=== PATIENT | female | born 1965 | race African-American/Black ===

== ENCOUNTER 2019-02-21 08:24 | Outpatient (CLI) | payer OTHER ==
--- NOTE | 2019-02-21 14:32 | MMO ---
Bilateral MAMMO Bilat Screen [facility]. CLINICAL HISTORY: Patient is 53 years old and is seen for screening. The patient has the following family history of breast cancer: maternal aunt, at age 55. The patient has no personal history of cancer. VIEWS: The views performed were: bilateral craniocaudal and bilateral mediolateral oblique. FILMS COMPARED: The present examination has been compared to prior imaging studies performed at [facility] on 09/16/2005, 09/16/2006, 11/10/2007, 11/24/2008 and 11/26/2009, and at [facility] on 12/09/2017. This study has been interpreted with the assistance of computer-aided detection. MAMMOGRAM FINDINGS: There are scattered fibroglandular densities. There are no suspicious masses, suspicious calcifications, or new areas of architectural distortion. IMPRESSION: THERE IS NO MAMMOGRAPHIC EVIDENCE OF MALIGNANCY. A ROUTINE FOLLOW-UP MAMMOGRAM IN 1 YEAR IS RECOMMENDED. ACR BI-RADS Category 1 - Negative MAMMOGRAPHY NOTE: 1. A negative mammogram report should not delay a biopsy if a dominant of clinically suspicious mass is present. 2. Approximately 10% to 15% of breast cancers are not detected by mammography. 3. Adenosis and dense breasts may obscure an underlying neoplasm.
== END 2019-02-21 08:25 | disposition home or self-care (01) ==
LOC: SCSMAMMO 08:24
PROVIDERS: ATTEND Family Medicine
DX: Z12.31 Encounter for screening mammogram for malignant neoplasm of breast (principal); Z80.3 Family history of malignant neoplasm of breast
CPT/HCPCS: 77067

== ENCOUNTER 2020-03-28 08:18 | Outpatient (CLI) | payer OTHER ==
--- NOTE | 2020-03-28 09:15 | MMO ---
Bilateral MAMMO Bilat Screen [facility]. CLINICAL HISTORY: Patient is 54 years old and is seen for screening. The patient has the following family history of breast cancer: maternal aunt, at age 55. The patient has no personal history of cancer. VIEWS: The views performed were: bilateral craniocaudal with tomosynthesis and bilateral mediolateral oblique with tomosynthesis. FILMS COMPARED: The present examination has been compared to prior imaging studies performed at [facility] on 02/21/2019, at [facility] on 11/24/2008 and 11/26/2009, and at [facility] on 12/09/2017. This study has been interpreted with the assistance of computer-aided detection. MAMMOGRAM FINDINGS: There are scattered fibroglandular densities. There are stable benign appearing calcifications seen in both breasts. There are no suspicious masses, suspicious calcifications, or new areas of architectural distortion. IMPRESSION: THERE IS NO MAMMOGRAPHIC EVIDENCE OF MALIGNANCY. A ROUTINE FOLLOW-UP MAMMOGRAM IN 1 YEAR IS RECOMMENDED. THE RESULTS OF THIS EXAM WERE SENT TO THE PATIENT. ACR BI-RADS Category 2 - Benign finding MAMMOGRAPHY NOTE: 1. A negative mammogram report should not delay a biopsy if a dominant of clinically suspicious mass is present. 2. Approximately 10% to 15% of breast cancers are not detected by mammography. 3. Adenosis and dense breasts may obscure an underlying neoplasm. Reported by: YAIR PINTO MD Electonically Signed: [id number]
== END 2020-03-28 08:19 | disposition home or self-care (01) ==
LOC: BICMAMMO 08:18
PROVIDERS: ATTEND Family Medicine
DX: Z12.31 Encounter for screening mammogram for malignant neoplasm of breast (principal); Z80.3 Family history of malignant neoplasm of breast
CPT/HCPCS: 77063; 77067

== ENCOUNTER 2020-08-17 14:53 | Outpatient (CLI) | payer BC ==
--- NOTE | 2020-08-17 15:24 | ULT ---
EXAM: US Soft Tissue Other DATE: 08/17/2020 12:00 AM INDICATION: Palpable painful areas in the left axilla for 2 weeks COMPARISON: None. FINDING: Grayscale and color Doppler images of the left axilla were provided. Within a region of pal pable interest is a 0.5 x 0.9 x 0.6 cm lymph node. The single cortex thickness of this lymph node was 2 mm. An additional 1.2 x 0.5 cm lymph node was present within the left axilla. This lymph node h ad a single cortex thickness of 1.8 mm. IMPRESSION:Nonpathologically enlarged lymph nodes correspond to the palpable painful areas in the lef t axilla. No additional sonographic abnormalities seen within this location. Recommend diagnostic mammography if there is concern for underlying breast malignancy.
== END 2020-08-17 14:54 | disposition home or self-care (01) ==
LOC: BICULT 14:53
PROVIDERS: ATTEND Family Medicine
DX: R22.32 Localized swelling, mass and lump, left upper limb (principal)
CPT/HCPCS: 76999

== ENCOUNTER 2020-08-22 14:54 | Outpatient (CLI) | payer BC ==
--- NOTE | 2020-08-22 17:40 | MRI ---
MRI OF THE RIGHT SHOULDER WITHOUT CONTRAST: 08/22/20 HISTORY: Tear right rotator cuff. COMPARISON: None. FINDINGS: BICEPS TENDON: There is a large interstitial split tear at the proximal extra-articular biceps tendon at the intertu bercular groove. There is high grade interstitial tearing of the intra-articular tendon. LABRUM: Intrasubstance tear throughout the superior labrum. ROTATOR CUFF: Some low grade undersurface partial tearing of the subscapularis in the footprint. There is full thic kness full width supraspinatus tendon tear from the footprint retracting the mid humeral head. Torn f ibers are mildly scarred. The infraspinatus tendon anterior fibers have some mild undersurface partia l tearing, 30-40% thickness. BONES: Type III acromion with large subacromial keel enthesophyte narrowing the subacromial space. Normal gl enoid version. No acute fracture or malalignment. MUSCLES: Some low grade atrophy of the supraspinatus. There is some volume loss within the suprascapular fossa . No interstitial edema. SOFT TISSUES: There is some moderate subacromial subdeltoid bursa effusion due to communication of the glenohumeral joint. Axillary pouch is maintained. Subcoracoid fat triangle is maintained. IMPRESSION: 1. Full thickness full width supraspinatus tendon tear from the footprint retracting the mid hum eral head with extensive delamination of the torn fibers. 2. Severe interstitial split tearing throughout the intra-articular and majority of the extra-ar ticular biceps tendon with markedly thickened intra-articular tendon due to mucinous degeneration an d may be the cause of pain and locking of the shoulder. 3. Low grade supraspinatus muscle atrophy. 4. Type III acromion with large subacromial keel enthesophyte narrowing the subacromial space. 5. Superior labral tearing, intrasubstance anterior to posterior to the biceps labral expansion. POS: [facility]
== END 2020-08-22 14:55 | disposition home or self-care (01) ==
LOC: BICMRI 14:54
PROVIDERS: ATTEND Orthopaedic Surgery
DX: M75.121 Complete rotator cuff tear or rupture of right shoulder, not specified as traumatic (principal); S46.211A Strain of muscle, fascia and tendon of other parts of biceps, right arm, initial encounter; M62.511 Muscle wasting and atrophy, not elsewhere classified, right shoulder; S43.431A Superior glenoid labrum lesion of right shoulder, initial encounter; M75.91 Shoulder lesion, unspecified, right shoulder

== ENCOUNTER 2020-12-27 05:58 | Day surgery (SDC) | payer BC ==
[2020-12-26 14:08] VITALS: BMI 31.4
[2020-12-27] MEDS ORDERED: Fentanyl 100 MCG/2 ML VIAL ONE ×4 (06:53→10:49)
[2020-12-27] MEDS ORDERED: Midazolam HCl 2 mg/2 ml Vial ONE (06:53)
[2020-12-27] MEDS ORDERED: Fentanyl 100 MCG/2 ML VIAL SLOW IVP PRN (07:36)
[2020-12-27] MEDS ORDERED: Ondansetron PF 4 MG/2 ML Vial IVP PRN (07:45)
[2020-12-27] MEDS ORDERED: HYDROcodone/Acetaminophen 10/325 mg Tablet PO PRN ×2 (07:45)
[2020-12-27] MEDS ORDERED: Promethazine HCl 25 MG/ML VIAL IM PRN (07:45)
[2020-12-27] MEDS ORDERED: traMADol HCl 50 MG TAB PO PRN ×2 (07:45)
[2020-12-27] MEDS ORDERED: Ropivacaine 0.2% 550 ML 550 ML NERVE BLCK SCH (07:45)
[2020-12-27] MEDS ORDERED: Zolpidem Tartrate 5 MG TAB PO PRN (07:45)
[2020-12-27] MEDS ORDERED: Ropivacaine 0.5% HCl/PF (150 MG/30 ML VIAL) ONE (10:40)
[2020-12-27] MEDS ORDERED: Lidocaine 1% PF 5 ML VIAL ONE (10:40)
[2020-12-27] MEDS ORDERED: Dexamethasone 20 MG/5 ML VIAL ONE (10:40)
[2020-12-27] MEDS ORDERED: Ropivacaine 2% HCl/PF (20 MG/10 ML VIAL) ONE (10:40)
[2020-12-27] MEDS ORDERED: Rocuronium Bromide 10 MG/ML (10ML VIAL) ONE (10:40)
[2020-12-27] MEDS ORDERED: Glycopyrrolate 0.2 MG/ML 5 ML SYRINGE ONE (10:40)
[2020-12-27] MEDS ORDERED: Ondansetron PF 4 MG/2 ML Vial ONE (10:40)
[2020-12-27] MEDS ORDERED: PROPOFOL 200 MG/20 ML VIAL ONE (10:40)
[2020-12-27] MEDS ORDERED: Ketorolac Tromethamine 30 MG/ML VIAL ONE (10:40)
[2020-12-27] MEDS ORDERED: Bupivacaine 0.5% 10 ML VIAL ONE (11:11)
[2020-12-27] MEDS ORDERED: Ketorolac Tromethamine 30 MG/ML VIAL IVP SCH (12:00)
--- NOTE | 2020-12-27 12:33 | OP ---
DATE OF PROCEDURE: 12/27/2020 Dictated by Marcelino Shanks PA-C, for Dr. Raheem Russell. PREOPERATIVE DIAGNOSES: Right supraspinatus rotator cuff tear with acromial spurring and severe biceps tendinosis. POSTOPERATIVE DIAGNOSES: Right supraspinatus rotator cuff tear with acromial spurring and severe biceps tendinosis. OPERATIVE PROCEDURES: Open acromioplasty, open biceps tenodesis and open primary repair, double row technique, right supraspinatus rotator cuff tear. FINDINGS: 1. Retracted rotator cuff tear involving primarily the supraspinatus tendon, which appeared to be delaminated and acute on chronic, but attritional in nature. 2. Acromial spurring. 3. Severe tendinosis primarily proximal biceps at the insertion of the glenoid. INSURANCE HEALTHCARE CONSULTANT: Marcelino Shanks PA-C The technical staff assistant/co-surgeon was present through the entire procedure and was responsible for providing exposure, tissue retraction and any necessary limb or tissue manipulation required to obtain necessary reduction or hardware placement. The technical staff assistant/co-surgeon also provided bleeding control, tissue closure, and suturing in conjunction with the primary surgeon. ANESTHESIA: General via endotracheal tube augmented with indwelling interscalene block. COMPONENTS USED: 1. One cottony Dacron. 2. One Arthrex double-arm suture anchor. 3. 5.5 mm metal suture anchor. 4. Two BioComposite double row suture anchors and a 7 mm BioComposite tenodesis screw. DRAINS: None. SPECIMENS: None. COMPLICATIONS: None. COUNTS: Correct. INDICATION FOR SURGERY: Jacqui is a 55-year-old female, who has had right shoulder pain working overhead for the last 6 months. MRI demonstrated a retracted rotator cuff tear and biceps tendinosis and she has elected to proceed with open rotator cuff repair, tenodesis, and acromioplasty as definitive management of this problem. DESCRIPTION OF PROCEDURE: After informed was obtained, the patient was taken to the operative suite, where she received preoperative antibiotics. General anesthesia was induced and an endotracheal tube was placed and secured. Once adequate anesthesia was obtained, the patient was positioned in the beach chair position and the right upper extremity was prepped and draped in usual sterile fashion. She received preoperative antibiotics within an hour of incision time. The right upper extremity was then prepped and draped in usual sterile fashion. Prior to incision, a time-out was called and multidisciplinary time-out was observed. After this, a typical lateral incision was made directly over the acromion extending down approximately 3 fingerbreadths below the lateral aspect of the acromion. Local bleeding was controlled with Bovie electrocautery. The subcutaneous layer was then undermined with the Bovie electrocautery. The acromion was encountered and exposed anteriorly peeling off the anterior deltoid carefully. We then chose to enter between the anterior and middle deltoid raphe extending down 2 fingerbreadths to avoid the axillary nerve. A self-retaining retractor was placed and an osteotome was used to perform the acromioplasty to remove the spur and also improve visualization. Upon completion, the cuff tear was identified and freshened up. We then turned our attention to the biceps tenodesis. Curved Rae scissors were used to incise the tendon at the insertion of the glenoid deep within the shoulder and this was controlled with #1 Vicryl proximally. The biceps tendon sheath was then opened up exposing the gutter next to the lesser tuberosity. We chose a 7 mm biocompatible Arthrex tenodesis screw. The pin was placed, overdrilled with a 7 mm reamer using a unicortical technique. The tendon was captured and an interference screw was placed holding and fixing the tendon securely. We then turned our attention back toward the rotator cuff repair. The bone underlying the cuff tear was freshened up with a rongeur to get nice bleeding cortical bone. We then used a cottony Dacron in a margin convergence stitch and also used it as a lateral fixator later on. The single 5.5 metallic double-arm screw was then placed within the bleeding bone at the cartilaginous margin. Two stitches were placed in a tissue bridge technique. These were then prepared for double-row technique after tying them over the top. We had good footprint and pulldown of the tendon after we had performed a circumferential release with the . Two BioComposite suture anchors were then used for a crossing double row technique, malleted firmly into place and screwed with an interference technique, and all stitches were removed and cut short. The repair was watertight, inspected with internal, external rotation and abduction and forward flexion. Found to be very solid. Copious irrigation was carried out to the length and breadth of the wound. We then used a #1 Ethibond to perform a deltoid repair and this was oversewn with #1 Vicryl. Subcutaneous layer was closed with 2-0 Vicryl and subcuticular layer was closed with 2-0 Vicryl and stainless steel elyse were used to reapproximate the skin. Sterile dressing was applied. The procedure was terminated without any complication. The patient tolerated well. She was extubated in the operative suite and taken to recovery room in stable condition. Job ID: [id number]
--- NOTE | 2021-01-02 15:12 | EKG ---
Test Reason : PREOP Blood Pressure : / mmHG Vent. Rate : 070 BPM Atrial Rate : 070 BPM P-R Int : 162 ms QRS Dur : 104 ms QT Int : 412 ms P-R-T Axes : 026 -12 098 degrees QTc Int : 444 ms Normal sinus rhythm Left ventricular hypertrophy with repolarization abnormality Abnormal ECG No previous ECGs available Confirmed by REBEKA TURNER (2) on 01/02/2021 3:12:02 PM Referred By: CHLOE Confirmed By:REBEKA TURNER
== END 2020-12-27 13:25 | disposition home or self-care (01) ==
LOC: SDC 05:58
PROVIDERS: ATTEND Orthopaedic Surgery
PROC: 3E0T3BZ Introduction of Anesthetic Agent into Peripheral Nerves and Plexi, Percutaneous Approach (ICD-10-PCS; principal; 2020-12-27)
PROC: 0LS30ZZ Reposition Right Upper Arm Tendon, Open Approach (ICD-10-PCS; principal; 2020-12-27)
PROC: 0LQ10ZZ Repair Right Shoulder Tendon, Open Approach (ICD-10-PCS; principal; 2020-12-27)
PROC: 0RNJ0ZZ Release Right Shoulder Joint, Open Approach (ICD-10-PCS; principal; 2020-12-27)
DX: M75.101 Unspecified rotator cuff tear or rupture of right shoulder, not specified as traumatic (principal); M75.21 Bicipital tendinitis, right shoulder; G89.18 Other acute postprocedural pain; I42.9 Cardiomyopathy, unspecified; Z79.82 Long term (current) use of aspirin; Z79.899 Other long term (current) drug therapy; Z88.2 Allergy status to sulfonamides; Z88.5 Allergy status to narcotic agent
CPT/HCPCS: 93005; 93010; C1713; J0690; J1100; J1885; J2250; J2405; J2704; J2795; J3010; J3490

== ENCOUNTER → 2020-12-28 | Day surgery (SDC) | payer BC ==
[~2020-12-28] MED LIST: Bupivacaine HCl 0.5%/Epinephrine 1:200,000/PF 30 ml Vial ONE; Fentanyl 100 MCG/2 ML VIAL ONE; Sodium Chloride 0.9% 10 ML ONE
== END ==
LOC: SDC/OP 07:39
PROVIDERS: ATTEND Anesthesiology
PROC: 3E0T3BZ Introduction of Anesthetic Agent into Peripheral Nerves and Plexi, Percutaneous Approach (ICD-10-PCS; principal; 2020-12-28)
DX: G89.18 Other acute postprocedural pain (principal); M25.511 Pain in right shoulder; Z88.2 Allergy status to sulfonamides
CPT/HCPCS: J3010

== ENCOUNTER 2021-11-20 06:57 | Outpatient (CLI) | payer BC | END 2021-11-20 06:58 | disposition home or self-care (01) | LOC: BICULT 06:57 | PROVIDERS: ATTEND Family Medicine | DX: R10.2 Pelvic and perineal pain (principal); D25.9 Leiomyoma of uterus, unspecified; K76.0 Fatty (change of) liver, not elsewhere classified | CPT/HCPCS: 76700; 76856 ==

== ENCOUNTER 2022-12-16 08:17 | Outpatient (CLI) | payer BC | END 2022-12-16 08:18 | disposition home or self-care (01) | LOC: BICMAMMO 08:17 | PROVIDERS: ATTEND Nurse Practitioner Family | DX: Z12.31 Encounter for screening mammogram for malignant neoplasm of breast (principal); Z80.3 Family history of malignant neoplasm of breast | CPT/HCPCS: 77063; 77067 ==

== ENCOUNTER 2023-02-24 01:15 | Emergency (ER) | payer BC ==
[2023-02-24 02:06] LABS: Hemoglobin 12.4 g/dL (12.0-16.0); Mean Corpuscular HGB CONC 32.4 g/dL (32.0-36.0); Mean Corpuscular Hemoglobin 27.4 pg (27.0-31.0); Mean Corpuscular Volume 84.8 fl (78.0-98.0); Platelet Count 191 10x3/uL (130-400); RBC Distribution Width 12.6 % (11.5-14.5); Red Blood Cell (RBC) Count 4.52 mill/uL (4.20-5.40); White Blood Cell (WBC) Count 4.8 10x3/uL (4.8-10.8)
[2023-02-24] MEDS ORDERED: Morphine 4 MG/ML VIAL ONE (02:31)
[2023-02-24] MEDS ORDERED: Aspirin 325 MG TAB ONE (02:31)
[2023-02-24 02:33] LABS: Eosinophils 2 % (0-10); Lymphocytes 50 % (21-51); MDiff Complete? YES; Monocytes 5 % (0-10); Neutrophil 43 % (42-75); Platelet Morphology Comment Appears Adequate; RBC Morphology Normal
[2023-02-24 03:25] LABS: ALT (SGPT) 14 U/L (8-55); AST (SGOT) 23 U/L (5-34); Albumin 4.4 g/dL (3.5-5.0); Alkaline Phosphatase 81 U/L (40-110); Anion Gap 14 mmol/L (10-20); BUN (Urea Nitrogen) 21 mg/dL (9.8-20.1); Bilirubin, Total 0.4 mg/dL (0.2-1.2); Calc. Creatinine Clearance 0 mL/min (70-130); Calcium 9.8 mg/dL (7.8-10.44); Carbon Dioxide 24 mmol/L (22-29); Chloride 103 mmol/L (98-107); Estimated GFR 61; Globulin 4.2 g/dL (2.4-3.5); Glucose 99 mg/dL (70-105); Potassium 3.7 mmol/L (3.5-5.1); Protein, Total 8.6 g/dL (6.0-8.3); Sodium 137 mmol/L (136-145)
== END 2023-02-24 05:04 | disposition home or self-care (01) ==
LOC: ERS 01:15
DX: R10.9 Unspecified abdominal pain (principal); I11.0 Hypertensive heart disease with heart failure; I50.9 Heart failure, unspecified; Z79.899 Other long term (current) drug therapy
CPT/HCPCS: 36415; 71045; 80053; 83880; 84484; 85025; 93005; 96374; J2270

== ENCOUNTER 2023-06-17 09:53 | Outpatient (CLI) | payer BC | END 2023-06-17 09:54 | disposition home or self-care (01) | LOC: SCSRAD 09:53 | PROVIDERS: ATTEND Nurse Practitioner Family | DX: M54.50 Low back pain, unspecified (principal); R10.84 Generalized abdominal pain; M47.816 Spondylosis without myelopathy or radiculopathy, lumbar region | CPT/HCPCS: 72110; 74019 ==

== ENCOUNTER 2023-11-10 08:42 | Outpatient (CLI) | payer BC | END 2023-11-10 08:43 | disposition home or self-care (01) | LOC: BICMAMMO 08:42 | PROVIDERS: ATTEND Nurse Practitioner Family | DX: N63.25 Unspecified lump in the left breast, overlapping quadrants (principal) | CPT/HCPCS: 76642; 77066; G0279 ==

== ENCOUNTER 2024-05-16 09:23 | Outpatient (CLI) | payer BC | END 2024-05-16 09:24 | disposition home or self-care (01) | LOC: BICMAMMO 09:23 | PROVIDERS: ATTEND Nurse Practitioner Family | DX: N63.10 Unspecified lump in the right breast, unspecified quadrant (principal) | CPT/HCPCS: G0279 ==

== ENCOUNTER 2024-11-25 08:18 | Outpatient (CLI) | payer BC | END 2024-11-25 08:19 | disposition home or self-care (01) | LOC: BICMAMMO 08:18 | DX: N63.15 Unspecified lump in the right breast, overlapping quadrants (principal) | CPT/HCPCS: 77066; G0279 ==